=== PATIENT | male | born 2000 | race Caucasian/White ===

== ENCOUNTER 2020-04-19 09:39 | Emergency (ER) | payer OTHER ==
[~2020-04-19] VITALS: Ht 190.5 cm; Wt 83.9 kg
[2020-04-19] MEDS ORDERED: TRAZODONE HCL50 MG PO (09:59)
[2020-04-19] MEDS ORDERED: NORCO 5-325 TA1 EACH PO (11:12)
== END 2020-04-19 11:39 | disposition home or self-care (01) ==
LOC: ED 09:39
DX: S29.011A Strain of muscle and tendon of front wall of thorax, initial encounter (principal); X50.0XXA Overexertion from strenuous movement or load, initial encounter; F17.200 Nicotine dependence, unspecified, uncomplicated; Z88.0 Allergy status to penicillin; Z79.899 Other long term (current) drug therapy
CPT/HCPCS: 71046; 99284-25